=== PATIENT | female | born 1970 | race Caucasian/White ===

== ENCOUNTER 2017-06-26 07:42 | Day surgery (SDC) | payer BC ==
[~2017-06-26 07:42] MED LIST: Sodium Chloride 0.9% 10 ML Syringe FLUSH PRN
[2017-06-26] MEDS ORDERED: Lactated Ringers 1,000 ML IV SCH (07:45)
[2017-06-26] MEDS ORDERED: Sodium Chloride 0.9% 10 ML Syringe FLUSH PRN (07:45)
--- NOTE | 2017-06-26 08:54 | PCM.HPR ---
H & P Addendum review - H & P Addendum Review Date of Original H & P: 06/06/17 Date Reviewed: 06/26/17 Time Reviewed: 08:10 Patient was Examined: No Changes
[2017-06-26] MEDS ORDERED: Midazolam 1 MG/ML 2 ML SDV ONE ×2 (08:55→09:00)
[2017-06-26] MEDS ORDERED: Propofol 200 MG/20 ML SDV ONE ×3 (08:55→09:38)
[2017-06-26] MEDS ORDERED: fentaNYL 100 MCG/2 ML SDV ONE ×2 (08:55→09:00)
--- NOTE | 2017-06-26 09:53 | PCM.OPNOTE ---
- General Post-Op/Procedure Note Date of Surgery/Procedure: 06/26/17 Operative Procedure(s): Colonoscopy Findings: normal Pre Op Diagnosis: FH Colon Ca Post-Op Diagnosis: Same Anesthesia Technique: MAC Primary Surgeon: Hai Uribe Anesthesia Provider: Lara Swenson Complications: None Condition: Good Free Text/Narrative:: Intake & Output 06/25/17 06/26/17 06/26/17 22:59 06:59 14:59 Intake Total 800 Balance 800
--- NOTE | 2017-06-26 12:06 | OR ---
Date of Procedure: 06/26/2017 PREOPERATIVE DIAGNOSIS: Family history of colon cancer. POSTOPERATIVE DIAGNOSIS: Normal colonoscopy. PROCEDURE: Colonoscopy. ANESTHESIA: IV sedation. PROCEDURE IN DETAIL: The patient was brought to the procedure room where she was placed on her left side and IV sedation administered. Digital rectal exam was performed which was normal. Colonoscope was inserted and advanced to the level of the cecum without difficulty. Cecal position was confirmed by identifying the appendiceal lumen and ileocecal valve. Prep was good, and surfaces were well visualized. Upon withdrawing the scope, the ascending, transverse, and descending colon were normal in appearance. Sigmoid colon and rectum were normal. Retroflexion was normal. Air was removed and the scope withdrawn. The patient tolerated the procedure well and returned to recovery in stable condition. Recommend routine colon screening again in 5 years. MILAD ABEL MD /[id number]
== END 2017-06-26 10:55 | disposition home or self-care (01) ==
LOC: LL.SDS 07:42
PROVIDERS: ATTEND Surgery
DX: Z12.11 Encounter for screening for malignant neoplasm of colon (principal); Z88.0 Allergy status to penicillin; Z88.2 Allergy status to sulfonamides; Z80.0 Family history of malignant neoplasm of digestive organs
CPT/HCPCS: 45378; 81025; J2250; J2704; J3010; J7120

== ENCOUNTER 2018-12-29 13:45 | Emergency (ER) | payer BC, OTHER ==
[2018-12-29] MEDS: Diphtheria,Pertussis(Acell),Tetanus Vaccine 0.5 ML SDV IM ONE (14:05)
--- NOTE | 2018-12-29 14:40 | EDM.PDOC ---
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 [No Known Home Meds] 06/25/17 [History] Past Medical History - Past Health History Medical/Surgical History: Denies Medical/Surgical History HEENT History: Reports: Impaired Vision Other HEENT History: wears glasses Cardiovascular History: Reports: None Respiratory History: Reports: None Gastrointestinal History: Reports: None Genitourinary History: Reports: None TELEPHONE OPERATORS SUPERVISOR History: Reports: Other TELEPHONE OPERATORS SUPERVISOR History: LPM 12/22/18 Musculoskeletal History: Reports: None Neurological History: Reports: None Psychiatric History: Reports: None Endocrine/Metabolic History: Reports: None Hematologic History: Reports: None Immunologic History: Reports: None Oncologic (Cancer) History: Reports: None Dermatologic History: Reports: None - Infectious Disease History Infectious Disease History: Reports: Chicken Pox - Past Surgical History Head Surgeries/Procedures: Reports: None HEENT Surgical History: Reports: None Cardiovascular Surgical History: Reports: None Respiratory Surgical History: Reports: None GI Surgical History: Reports: Colonoscopy Female Surgical History: Reports: Other (See Below) Other Female Surgeries/Procedures: Breast Cyst drained Musculoskeletal Surgical History: Reports: None Social & Family History - Tobacco Use Smoking Status *Q: Never Smoker - Caffeine Use Caffeine Use: Reports: Soda - Recreational Drug Use Recreational Drug Use: No ED ROS GENERAL - Review of Systems Review Of Systems: Comprehensive ROS is negative, except as noted in HPI. ED EXAM, SKIN/RASH Exam: See Below Exam Limited By: No Limitations General Appearance: Alert, WD/WN, No Apparent Distress Throat/Mouth: Normal Voice, No Airway Compromise Head: Atraumatic, Normocephalic Neck: Supple Respiratory/Chest: No Respiratory Distress Extremities: Normal Range of Motion, Normal Capillary Refill Neurological: Alert, Oriented, Normal Cognition, Normal Gait, No Motor/Sensory Deficits Psychiatric: Normal Affect, Normal Mood Skin: Wound/Incision (laceration noted near left elbow) ED SKIN PROCEDURES - Laceration/Wound Repair Left Elbow Appearance: Subcutaneous, Linear, Clean Distal NVT: Neuro & Vascular Intact, No Tendon Injury Skin Prep: Providone-Iodine (Betadine) Exploration/Debridement/Repair: Wound Explored, In a Bloodless Field, Explored to Base Closed with: Dermabond Lac/Wound length In cm: 1.5 Sterile Dressing Applied: Nurse Tetanus Status Addressed: Yes Complications: No Course - Vital Signs Last Recorded V/S: Last Vital Signs Temp 36.6 C 12/29/18 13:54 Pulse 81 12/29/18 13:54 Resp 16 12/29/18 13:54 BP 119/88 12/29/18 13:54 Pulse Ox 97 12/29/18 13:54 - Orders/Labs/Meds Orders: Active Orders 24 hr Category Date Time Status Vaccines to be Administered [RC] PER UNIT ROUTINE Care 12/29/18 13:54 Active Meds: Medications Discontinued Medications Generic Name Dose Route Start Last Admin Trade Name Freq PRN Reason Stop Dose Admin Diphtheria/Tetanus/Acell Pertussis 0.5 ml 12/29/18 13:54 12/29/18 14:05 Adacel IM 12/29/18 13:55 0.5 ml .ONCE ONE Administration - Re-Assessments/Exams Free Text/Narrative Re-Assessment/Exam: 12/29/18 15:18 Laceration closed with tissue glue. Steri strips and bandage applied by nursing staff. Precautions reviewed. To follow up as needed if any problems develop. Departure - Departure Time of Disposition: 14:39 Disposition: Home, Self-Care 01 Condition: Good Clinical Impression: Laceration of elbow Qualifiers: Encounter type: initial encounter Laterality: left Qualified Code(s): S51.012A - Laceration without foreign body of left elbow, initial encounter - Discharge Information *PRESCRIPTION DRUG MONITORING PROGRAM REVIEWED*: Not Applicable *COPY OF PRESCRIPTION DRUG MONITORING REPORT IN PATIENT ERNA: Not Applicable Instructions: Stitches, [place], or Adhesive Wound Closure, [id number] Referrals: PCP,None [Primary Care Provider] - Forms: ED Department Discharge Additional Instructions: Keep area protected as discussed. Follow up if you have any problems such as signs of infection. - My Orders Last 24 Hours: My Active Orders 12/29/18 13:54 Vaccines to be Administered [RC] PER UNIT ROUTINE - Assessment/Plan Last 24 Hours: My Active Orders 12/29/18 13:54 Vaccines to be Administered [RC] PER UNIT ROUTINE
== END 2018-12-29 14:45 | disposition home or self-care (01) ==
LOC: LL.ED 13:45
DX: S51.012A Laceration without foreign body of left elbow, initial encounter (principal); Z88.0 Allergy status to penicillin; Z88.2 Allergy status to sulfonamides; Z23 Encounter for immunization; W26.9XXA Contact with unspecified sharp object(s), initial encounter; Y92.89 Other specified places as the place of occurrence of the external cause; Y99.0 Civilian activity done for income or pay
CPT/HCPCS: 12001; 90471; 90715; 99282